=== PATIENT | male | born 1955 | race Caucasian/White ===

== ENCOUNTER 2018-03-04 13:46 | Emergency (ER) | payer BC ==
[~2018-03-04] VITALS: Ht 180.3 cm; Wt 109.1 kg
[~2018-03-04 13:46] MED LIST: MECLIZINE HCL25 MG PO; PRILOSEC20 MG PO
[2018-03-04] MEDS ORDERED: LEVSIN0.125 MG PO (17:18)
[2018-03-04 17:46] VITALS: BP 127/72
== END 2018-03-04 17:49 | disposition home or self-care (01) ==
LOC: EME 13:46
PROVIDERS: Physician Assistant
DX: T18.128A Food in esophagus causing other injury, initial encounter (principal); K21.9 Gastro-esophageal reflux disease without esophagitis; Z90.49 Acquired absence of other specified parts of digestive tract; Z87.891 Personal history of nicotine dependence; Z91.041 Radiographic dye allergy status
CPT/HCPCS: 70360; 82948; 99281; 99284